=== PATIENT | male | born 1940 | race Hispanic/Latino ===

== ENCOUNTER 2017-06-27 07:33 | Day surgery (SDC) | payer MEDICARE, BC ==
[2017-06-16 13:11] VITALS: BMI 27.6
[2017-06-27] MEDS ORDERED: Propofol 10 mg/ml Inj (20 ML) ONE (09:22)
[2017-06-27] MEDS ORDERED: Sodium Chloride 0.9% 1,000 ML IV SCH (11:00)
[2017-06-27 11:03] VITALS: RESP 16
[2017-06-27 11:31] VITALS: BP 118/67; PULSE 57; TEMP 98; O2SAT 97
== END 2017-06-27 13:14 | disposition home or self-care (01) ==
LOC: ENDO 07:33
PROVIDERS: ATTEND Internal Medicine Gastroenterology
DX: D12.4 Benign neoplasm of descending colon (principal); K57.30 Diverticulosis of large intestine without perforation or abscess without bleeding; K64.8 Other hemorrhoids; K63.5 Polyp of colon; I10 Essential (primary) hypertension; R19.5 Other fecal abnormalities
CPT/HCPCS: 45380; 45381; 45385; 88305; J2001; J2704; J7040 ×2